=== PATIENT | female | born 1970 | race Two or more races ===

== ENCOUNTER 2020-05-22 19:41 | Inpatient (IN) | payer OTHER ==
[~2020-05-22] VITALS: Ht 160 cm; Wt 63.5 kg
[2020-05-22] MEDS ORDERED: ALPR0.5T8 PO (19:51)
--- NOTE | 2020-05-22 19:57 | NUR ---
FRIEND ROBER LEFT PHONE NUMBER TO CALL WHEN PATIENT IS READY FOR CLIENT SERVICES DIRECTOR. [phone].
--- NOTE | 2020-05-22 20:02 | NUR ---
DR. JOYA AT BEDSIDE FOR MSE.
[2020-05-22] MEDS ORDERED: MORPHINE SULFATE 2 MG/1 ML DISP.SYRIN IV ONE (20:15)
[2020-05-22] MEDS ORDERED: ONDANSETRON 4 MG/2 ML VIAL IV ONE ×2 (20:15→22:30)
[2020-05-22] MEDS ORDERED: IV NORMAL SALINE 1000 ML BAG IV ONE ×2 (20:15→22:30)
[2020-05-22] MEDS ORDERED: MORPHINE SULFATE 4 MG/1 ML DISP.SYRIN ONE (20:22)
[2020-05-22] MEDS ORDERED: ONDANSETRON 4 MG/2 ML VIAL ONE ×2 (20:22→22:38)
--- NOTE | 2020-05-22 20:25 | NUR ---
IV PLACED IN LEFT FOREARM, LABS DRAWN, MEDICATION ADMINISTERED PER ORDER.
[2020-05-22 20:30] LABS: BASOPHILS % (AUTO) 0.1 % (0.0-2.0); HEMOGLOBIN 14.9 g/dL (10.9-14.3); LYMPHOCYTES # (AUTO) 0.5 K/uL (20.0-40.0); MEAN CORPUSCULAR HEMOGLOBIN 29.9 uug (24.7-32.8); MEAN CORPUSCULAR HGB CONC 34 g/dL (32.3-35.6); MONOCYTES # (AUTO) 0.1 K/uL (2.0-10.0); MONOCYTES % (AUTO) 0.9 % (0.0-11.0); NEUTROPHILS # (AUTO) 12.8 K/uL (1.8-8.9); PLATELET COUNT (AUTO) 337 K/uL (179-408); WHITE BLOOD COUNT (AUTO) 13.5 K/uL (3.8-11.8)
[2020-05-22 20:38] LABS: CREATININE 0.6 mg/dL (0.6-1.3); POTASSIUM 4.5 mmol/L (3.5-5.1)
[2020-05-22 20:43] LABS: BILIRUBIN,DIRECT 0.1 mg/dL (0.0-0.2); BILIRUBIN,TOTAL 0.6 mg/dL (0.2-1.0); TOTAL PROTEIN, SERUM 8.3 g/dL (6.4-8.2)
--- NOTE | 2020-05-22 20:45 | NUR ---
Ultrasound at bedside.
[2020-05-22] MEDS ORDERED: HYDROMORPHONE 1 MG/1 ML DISP.SYRIN IV ONE ×2 (21:30→22:30)
[2020-05-22] MEDS ORDERED: HYDROMORPHONE 1 MG/1 ML DISP.SYRIN ONE ×2 (21:36→22:38)
[2020-05-22 21:40] LABS: *BILIRUBIN,URIN NEGATIVE (NEGATIVE); *CLARITY,URINE SLIGHTLY CLOUDY (CLEAR); *COLOR,URINE YELLOW (YELLOW); *KETONES,URINE 2+ (NEGATIVE); *UROBILINOGEN,URINE 0.2 E.U./dl (NORMAL); LEUKOCYTE ESTERASE ,URINE NEGATIVE (NEGATIVE); NITRITE, URINE NEGATIVE (NEGATIVE); UGLUCOSE NEGATIVE (NEGATIVE)
[2020-05-22 21:42] LABS: *BLOOD, URINE TRACE INTACT (NEGATIVE)
--- NOTE | 2020-05-22 22:13 | NUR ---
DR Adams speaking with Dr Avila for consult.
[2020-05-22] MEDS ORDERED: KETOROLAC TROMETHAMINE 30 MG INJ IVP ONE (22:30)
[2020-05-22] MEDS ORDERED: KETOROLAC TROMETHAMINE 30 MG INJ ONE (22:38)
[2020-05-22 22:42] LABS: BACTERIA,URINE FEW /HPF (NONE SEEN); SQUAMOUS EPITHELIAL CELL,UR MANY /HPF (NONE SEEN); URINE AMORPHOUS PHOSPHATES MANY /HPF
[2020-05-22 22:45] LABS: *URINE HCG, QUAL NEGATIVE (NEGATIVE)
[2020-05-23] MEDS ORDERED: IV D5/ 0.9% NACL 1,000 ML IV ONE (00:45)
[2020-05-23] MEDS ORDERED: ONDANSETRON 4 MG/2 ML VIAL IV ONE ×2 (00:45→05:15)
[2020-05-23] MEDS ORDERED: HYDROMORPHONE 1 MG/1 ML DISP.SYRIN IV ONE ×2 (00:45→05:15)
[2020-05-23] MEDS ORDERED: PIPERACILLIN SODIUM/TAZOBACTAM 3.375 G in IV DEXTROSE 5% 50 ML IV ONE (00:45)
[2020-05-23] MEDS ORDERED: HYDROMORPHONE 1 MG/1 ML DISP.SYRIN ONE ×2 (01:25→05:21)
[2020-05-23] MEDS ORDERED: ONDANSETRON 4 MG/2 ML VIAL ONE ×2 (01:28→05:21)
[2020-05-23] MEDS ORDERED: PIPERACILLIN/TAZOBACTAM/D5W 50 ML IV ONE (01:28)
--- NOTE | 2020-05-23 02:35 | NUR ---
Dr Adams speaking with Luis Miguel Buchanan NP microelectronics technician for [facility] for admission.
[2020-05-23] MEDS ORDERED: ACETAMINOPHEN 325 MG TABLET PO PRN (03:15)
[2020-05-23] MEDS ORDERED: IV D5 1/2 NS 1000 ML 1,000 ML IV PRN (03:15)
--- NOTE | 2020-05-23 05:28 | NUR ---
Transfered to 2nd floor Tele via gurny with no distress noted.
[2020-05-23 05:30] VITALS: BP 135/75
--- NOTE | 2020-05-23 05:30 | NUR ---
RECEIVED PT FROM ER VIA [facility]. UNDER THE CARE OF ESTEFANY AGUILAR. DX: HEMORRHAGIC LEFT OVARIAN CYST, R/O OVARIAN TORSION. PT IN NO ACUTE DISTRESS. PT JUST GOT PAIN MEDICATION IN ER. ADMISSION PROCESS AND CARE PLAN INITIATED. BELONGING LIST DONE. SAFETY AND COMFORT PROVIDED. WILL CONTINUE TO MONITOR.
--- NOTE | 2020-05-23 08:00 | NUR ---
Received PT in bed, awake AO X 4. No acute distress or SOB noted. No complain of pain noted at the time. PT didn't sleep well during the night and requested to rest most of the day. Nurse will closely monitor. Will follow up with Dr. Perkins about Ultrasound results. PT in bed with safety measures, call light within reach, bed low and lock. Will continue to monitor.
[2020-05-23 08:18] LABS: BASOPHILS % (AUTO) 0.1 % (0.0-2.0); HEMATOCRIT 38.5 % (31.2-41.9); HEMOGLOBIN 13.2 g/dL (10.9-14.3); LYMPHOCYTES # (AUTO) 1.1 K/uL (20.0-40.0); LYMPHOCYTES % (AUTO) 5.5 % (20.5-51.5); MEAN CORPUSCULAR HEMOGLOBIN 30.3 uug (24.7-32.8); MEAN CORPUSCULAR HGB CONC 34 g/dL (32.3-35.6); MEAN CORPUSCULAR VOLUME 88.3 fL (75.5-95.3); MONOCYTES # (AUTO) 1.2 K/uL (2.0-10.0); NEUTROPHILS # (AUTO) 17.2 K/uL (1.8-8.9); NEUTROPHILS % (AUTO) 88.4 % (38.5-71.5); PLATELET COUNT (AUTO) 339 K/uL (179-408); RED BLOOD CELL COUNT(AUTO) 4.36 MIL/uL (3.63-4.92); WHITE BLOOD COUNT (AUTO) 19.5 K/uL (3.8-11.8)
[2020-05-23 08:40] VITALS: BP 105/65
[2020-05-23 09:14] LABS: ALANINE AMINOTRANSFERASE 18 U/L (14-59); ALKALINE PHOSPHATASE 51 U/L (50-136); ASPARTATE AMINOTRANSFERASE 13 U/L (15-37); BILIRUBIN,TOTAL 0.5 mg/dL (0.2-1.0); CARBON DIOXIDE 23 mmol/L (21-32); CHLORIDE 100 mmol/L (98-107); CREATININE 0.5 mg/dL (0.6-1.3); GLUCOSE 89 mg/dL (74-106); MAGNESIUM 1.8 mg/dL (1.8-2.4); PHOSPHOROUS 3.4 mg/dL (2.5-4.9); POTASSIUM 3.6 mmol/L (3.5-5.1); UREA NITROGEN, BLOOD 7 mg/dL (7-18)
[2020-05-23 09:23] LABS: THYROID STIMULATING HORMONE 1.017 mIU/mL (0.358-3.740)
[2020-05-23] MEDS: HYDROMORPHONE 1 MG/1 ML DISP.SYRIN IV PRN ×2 (09:29→14:19)
[2020-05-23] MEDS: ONDANSETRON 4 MG/2 ML VIAL IV PRN ×2 (09:30→15:25)
[2020-05-23 10:23] LABS: CHOLESTEROL 190 mg/dL (<200); HDL CHOLESTEROL 70 mg/dL (40-60); TRIGLYCERIDES 69 MG/DL (30-150)
[2020-05-23 12:27] VITALS: BP 120/69
--- NOTE | 2020-05-23 15:30 | NUR ---
Followed up with Dr. Perkins and cleared PT to go home. Notified Madeleine Byers. PT will be discharge with prescription orders. PT aware of plan. Pain noted at lower abdomen. Administered pain medication per physician's order. No acute distress or SOB noted. Safety measures provided, call light within reach, bed low and lock. Will continue to monitor.
[2020-05-23 16:20] VITALS: BP 110/64
[2020-05-23] MEDS ORDERED: HYDR-4384 PO (17:25)
--- NOTE | 2020-05-23 18:45 | NUR ---
PT changed and ready to leave. IV access removed with no swelling or bleeding noted. Paperwork, clothes, medications and valuables with patient. PT is pleasant and cooperative. PT is being picked up via private car with family. PT ambulated and escorted by PUBLIC FINANCE SPECIALIST. No acute distress or SOB noted. No complain of pain. Patient is discharged.
== END 2020-05-23 19:10 | disposition home or self-care (01) | DRG 532 ==
LOC: ER 19:45 → TELE 05-23 03:10
PROVIDERS: ADMIT Student in an Organized Health Care Education/Training Program; ATTEND Student in an Organized Health Care Education/Training Program
DX: N83.202 Unspecified ovarian cyst, left side (principal); Z20.822 Contact with and (suspected) exposure to COVID-19; F41.9 Anxiety disorder, unspecified; D72.829 Elevated white blood cell count, unspecified; E87.1 Hypo-osmolality and hyponatremia; R11.0 Nausea
CPT/HCPCS: 36415; 76856; 83735; 84100; 84443; 84703; 85025; 85730; 86850; 86900; 86901; 87086; G0378; J1170; J1885; J2270; J2405; J2543; J7030; J7042